=== PATIENT | male | born 1935 | race Caucasian/White ===

== ENCOUNTER 2016-05-01 12:59 | Emergency (ER) | payer MEDICARE, BC ==
[~2016-05-01] VITALS: Ht 185.4 cm; Wt 65.9 kg
[~2016-05-01 12:59] MED LIST: AMOXICILLIN/CLA1 TA1 PO; ASPIRIN 81M81 MG/TA2 PO; CARDIZEM 30MG T30 MG PO; DIGITEK0.125 MG PO; ELIQUIS 5MG PO; METAGLIP 2.5 MG1 TA1 PO; MOBIC15 MG PO; NORCO 325 MG-51 TAB PO; NORVASC 10MG10 MG PO; PRIL40 PO; PRINIVIL40 MG PO; SYNTHROID 0.0.025 MG PO; TOPROL XL100 MG PO; ZOCOR 20MG20 MG PO
[2016-05-01 13:03] VITALS: BP 139/69; PULSE 85; TEMP 97.5
== END 2016-05-01 14:18 | disposition home or self-care (01) ==
LOC: COL.ER 12:59
DX: M25.411 Effusion, right shoulder (principal); E11.9 Type 2 diabetes mellitus without complications; I10 Essential (primary) hypertension; F17.210 Nicotine dependence, cigarettes, uncomplicated

== ENCOUNTER 2016-05-07 14:22 | Inpatient (IN) | payer MEDICARE, BC ==
[2016-05-07] VITALS (56 sets, daily range): BP systolic 110; BP diastolic 57; PULSE 96; TEMP 100.4; O2SAT 86–98
[~2016-05-07] VITALS: Ht 182.9 cm; Wt 72.6 kg
[2016-05-07 15:07] LABS: BASO % 0.6 % (0.0-2.0); GRAN # 1.2 (1.4-6.5); GRAN % 67.7 % (42.2-75.2); LYMPH # 0.5 (1.2-3.4); LYMPH % 26.6 % (20.0-51.0); MEAN CELL VOLUME 87 fl (80.0-100.0); MEAN CORPUSCULAR HGB CONC 32 g/dl (33.0-37.0); MEAN PLATELET VOLUME 10.5 fl (7.4-10.4); MONO # 0.1 (0.1-0.6); MONO % 4.5 % (1.7-9.3); PLATELET COUNT 272 K/mm3 (130-400); RED BLOOD COUNT 3.58 M/mm3 (4.20-5.60); REDCELL DISTRIBUTION WIDTH-CV 15.9 % (11.5-14.5)
[2016-05-07 15:10] LABS: HEMATOCRIT 31.2 % (42.0-52.0); HEMOGLOBIN 10.1 g/dl (13.5-18.0); MEAN CORPUSCULAR HEMOGLOBIN 28 pg (27.0-31.0); WHITE BLOOD COUNT 1.8 K/mm3 (4.8-10.8)
[2016-05-07 15:13] LABS: ADD PATHOLOGY DIFF REVIEW NO
[2016-05-07 15:20] LABS: ADJUSTED CALCIUM 9.3 mg/dL (8.4-10.2); ALBUMIN 2.8 gm/dL (3.5-5.0); BILIRUBIN,TOTAL 0.8 mg/dL (0.0-1.0); CALCIUM 8.3 mg/dL (8.4-10.2); CREATININE, serum 0.61 mg/dL (0.66-1.25); POTASSIUM 3.4 mmol/L (3.4-5.0); TOTAL PROTEIN 6.4 gm/dL (6.4-8.2)
[2016-05-07 15:27] LABS: ARTERIAL BLD GAS TCO2 CT 21.6; ARTERIAL BLOOD GAS HCO3 20.7 meq/L (22-26); ARTERIAL BLOOD GAS PHT 7.47 C (7.35-7.45); ARTERIAL BLOOD GAS PO2 80.1 mmHg (80-100); ARTERIAL BLOOD GAS PO2T 80.1 (80-100); ARTERIAL BLOOD GAS pH 7.47 (7.35-7.45); OXYHEMOGLOBIN 94.1 %
[2016-05-07 15:28] LABS: ALLEN TEST NO; ATS? YES
[2016-05-07 15:49] LABS: BAND 25 % (0-10); METAMYELOCYTE 5 % (0-0); NEUTROPHILS 25 % (42.0-75.2); TOTAL CELLS COUNTED 100
[2016-05-07 15:53] LABS: PLATELET ESTIMATE INCREASED (NORMAL); POLYCHROMASIA 1+
[2016-05-07 15:54] LABS: ANISOCYTOSIS 2+; HYPOCHROMIA 2+; MICROCYTOSIS 2+
[2016-05-07 16:05] LABS: TOXIC GRANULATION PRESENT
[2016-05-07] MEDS ORDERED: OXYCODONE H5 MG/5 ML PO (21:48)
[2016-05-08] VITALS (1395 sets, daily range): BP systolic 92–121; BP diastolic 48–67; PULSE 76–88; TEMP 97–99.7; O2SAT 89–100
[2016-05-08 03:11] LABS: PH 5 (5-8); SQUAMOUS EPITHELIAL 0-2 /hpf; URINE APPEARANCE Clear; URINE BACTERIA None Seen /hpf; URINE BILIRUBIN Negative (NEGATIVE); URINE BLOOD Negative (NEGATIVE); URINE COLOR Amber; URINE GLUCOSE 1+ (NEGATIVE); URINE KETONE Negative (NEGATIVE); URINE RBC 0-2 /hpf; URINE UROBILINOGEN Negative (NEGATIVE); URINE WBC 0-2 /hpf
[2016-05-08 05:36] LABS: MEAN CELL VOLUME 86 fl (80.0-100.0); MEAN CORPUSCULAR HGB CONC 32 g/dl (33.0-37.0); MEAN PLATELET VOLUME 10.5 fl (7.4-10.4); PLATELET COUNT 191 K/mm3 (130-400); RED BLOOD COUNT 2.73 M/mm3 (4.20-5.60); REDCELL DISTRIBUTION WIDTH-CV 16.1 % (11.5-14.5); WHITE BLOOD COUNT 3.9 K/mm3 (4.8-10.8)
[2016-05-08 05:39] LABS: HEMATOCRIT 23.6 % (42.0-52.0); MEAN CORPUSCULAR HEMOGLOBIN 28 pg (27.0-31.0)
[2016-05-08 05:41] LABS: HEMOGLOBIN 7.6 g/dl (13.5-18.0)
[2016-05-08 05:42] LABS: ADD PATHOLOGY DIFF REVIEW NO
[2016-05-08 05:49] LABS: ANISOCYTOSIS 1+; BAND 71 % (0-10); METAMYELOCYTE 4 % (0-0); NEUTROPHILS 4 % (42.0-75.2); TOTAL CELLS COUNTED 100
[2016-05-08 05:50] LABS: ADJUSTED CALCIUM 8.6 mg/dL (8.4-10.2); ALBUMIN 2.1 gm/dL (3.5-5.0); BILIRUBIN,TOTAL 0.7 mg/dL (0.0-1.0); CALCIUM 7.1 mg/dL (8.4-10.2); CREATININE, serum 0.52 mg/dL (0.66-1.25); MAGNESIUM 1.7 mg/dL (1.6-2.3); PLATELET ESTIMATE NORMAL (NORMAL); POTASSIUM 3.1 mmol/L (3.4-5.0)
[2016-05-08 12:39] LABS: PHOSPHOROUS 2.1 mg/dL (2.5-4.5)
[2016-05-08 18:03] LABS: HEMATOCRIT 26.1 % (42.0-52.0); HEMOGLOBIN 8.4 g/dl (13.5-18.0)
[2016-05-08 18:14] LABS: MAGNESIUM 1.8 mg/dL (1.6-2.3); POTASSIUM 3.7 mmol/L (3.4-5.0)
[2016-05-09] VITALS (698 sets, daily range): BP systolic 101–133; BP diastolic 50–75; PULSE 67–104; TEMP 97.4–98.2; O2SAT 85–100
[2016-05-09 05:45] LABS: MEAN CELL VOLUME 90 fl (80.0-100.0); MEAN CORPUSCULAR HGB CONC 31 g/dl (33.0-37.0); MEAN PLATELET VOLUME 10.8 fl (7.4-10.4); PLATELET COUNT 189 K/mm3 (130-400); RED BLOOD COUNT 2.76 M/mm3 (4.20-5.60); REDCELL DISTRIBUTION WIDTH-CV 16.4 % (11.5-14.5); WHITE BLOOD COUNT 7.4 K/mm3 (4.8-10.8)
[2016-05-09 05:49] LABS: HEMATOCRIT 24.8 % (42.0-52.0); HEMOGLOBIN 7.6 g/dl (13.5-18.0); MEAN CORPUSCULAR HEMOGLOBIN 28 pg (27.0-31.0)
[2016-05-09 05:50] LABS: ADD PATHOLOGY DIFF REVIEW NO
[2016-05-09 06:00] LABS: ADJUSTED CALCIUM 7.9 mg/dL (8.4-10.2); ALBUMIN 1.7 gm/dL (3.5-5.0); BILIRUBIN,TOTAL 0.4 mg/dL (0.0-1.0); CALCIUM 6.1 mg/dL (8.4-10.2); CREATININE, serum 0.45 mg/dL (0.66-1.25); POTASSIUM 5.4 mmol/L (3.4-5.0); TOTAL PROTEIN 4.3 gm/dL (6.4-8.2)
[2016-05-09 06:01] LABS: ANISOCYTOSIS 1+; BAND 66 % (0-10); NEUTROPHILS 19 % (42.0-75.2); PLATELET ESTIMATE NORMAL (NORMAL); TOTAL CELLS COUNTED 100
[2016-05-10] VITALS (7 sets, daily range): BP systolic 99–126; BP diastolic 45–65; PULSE 58–86; TEMP 97.2–99.3
[2016-05-10 06:47] LABS: MEAN CELL VOLUME 88 fl (80.0-100.0); MEAN CORPUSCULAR HGB CONC 32 g/dl (33.0-37.0); MEAN PLATELET VOLUME 11.2 fl (7.4-10.4); PLATELET COUNT 245 K/mm3 (130-400); RED BLOOD COUNT 3.32 M/mm3 (4.20-5.60); REDCELL DISTRIBUTION WIDTH-CV 16.5 % (11.5-14.5); WHITE BLOOD COUNT 10.6 K/mm3 (4.8-10.8)
[2016-05-10 06:51] LABS: ADJUSTED CALCIUM 8.7 mg/dL (8.4-10.2); ALBUMIN 1.9 gm/dL (3.5-5.0); BILIRUBIN,TOTAL 0.4 mg/dL (0.0-1.0); CREATININE, serum 0.48 mg/dL (0.66-1.25); TOTAL PROTEIN 4.5 gm/dL (6.4-8.2)
[2016-05-10 06:54] LABS: POTASSIUM 2.6 mmol/L (3.4-5.0)
[2016-05-10 06:57] LABS: ADD PATHOLOGY DIFF REVIEW NO; HEMATOCRIT 29.1 % (42.0-52.0); HEMOGLOBIN 9.2 g/dl (13.5-18.0); MEAN CORPUSCULAR HEMOGLOBIN 28 pg (27.0-31.0)
[2016-05-10 08:14] LABS: BAND 50 % (0-10); EOSINOPHIL 2 % (0-4); METAMYELOCYTE 1 % (0-0); NEUTROPHILS 35 % (42.0-75.2); TOTAL CELLS COUNTED 100
[2016-05-10 08:15] LABS: ANISOCYTOSIS 1+; BURR CELLS 1+; PLATELET ESTIMATE NORMAL (NORMAL); POIKILOCYTOSIS 1+; TOXIC GRANULATION PRESENT
[2016-05-10 08:16] LABS: OVALOCYTES 1+
[2016-05-10 09:10] LABS: POTASSIUM 2.7 mmol/L (3.4-5.0)
[2016-05-10 11:35] LABS: MAGNESIUM 1.8 mg/dL (1.6-2.3); PHOSPHOROUS 1.4 mg/dL (2.5-4.5)
[2016-05-11 03:50] VITALS: BP 123/62; PULSE 78; TEMP 98.1
[2016-05-11 07:40] LABS: MEAN CELL VOLUME 87 fl (80.0-100.0); MEAN CORPUSCULAR HGB CONC 32 g/dl (33.0-37.0); MEAN PLATELET VOLUME 11.1 fl (7.4-10.4); PLATELET COUNT 276 K/mm3 (130-400); REDCELL DISTRIBUTION WIDTH-CV 16.6 % (11.5-14.5); WHITE BLOOD COUNT 12.4 K/mm3 (4.8-10.8)
[2016-05-11 07:50] LABS: ADD PATHOLOGY DIFF REVIEW NO; HEMATOCRIT 29.5 % (42.0-52.0); HEMOGLOBIN 9.4 g/dl (13.5-18.0); MEAN CORPUSCULAR HEMOGLOBIN 28 pg (27.0-31.0)
[2016-05-11 07:58] VITALS: BP 110/55; PULSE 94; TEMP 97
[2016-05-11 08:39] LABS: BAND 19 % (0-10); EOSINOPHIL 2 % (0-4); NEUTROPHILS 62 % (42.0-75.2); TOTAL CELLS COUNTED 100
[2016-05-11 08:45] LABS: OVALOCYTES 1+
[2016-05-11 11:15] VITALS: BP 94/42; PULSE 74; TEMP 97.8
[2016-05-11] MEDS ORDERED: AUGMENTIN 250150 ML PO ×2 (12:18→12:32)
[2016-05-11] MEDS ORDERED: FLAGYL 250250 MG/TAB PO (12:25)
[2016-05-11] MEDS ORDERED: KLOR-CON20 MEQ PO (12:29)
[2016-05-11] MEDS ORDERED: AMARYL1 MG PO (12:30)
== END 2016-05-11 13:35 | disposition home or self-care (01) | DRG 177 ==
LOC: COL.ER 14:22 → ICU 16:12 → MEDICAL 16:12 → IMCU 17:55 → ICU 20:05 → MEDICAL 05-09 14:21
PROVIDERS: Anesthesiology Critical Care Medicine; Family Medicine; Internal Medicine
DX: J69.0 Pneumonitis due to inhalation of food and vomit (principal); D61.810 Antineoplastic chemotherapy induced pancytopenia; E43 Unspecified severe protein-calorie malnutrition; A04.7 Enterocolitis due to Clostridium difficile; C78.01 Secondary malignant neoplasm of right lung; C78.02 Secondary malignant neoplasm of left lung; C79.89 Secondary malignant neoplasm of other specified sites; Z68.1 Body mass index [BMI] 19.9 or less, adult; Z85.21 Personal history of malignant neoplasm of larynx; Z93.0 Tracheostomy status; I48.91 Unspecified atrial fibrillation; I10 Essential (primary) hypertension; E11.9 Type 2 diabetes mellitus without complications; Z87.891 Personal history of nicotine dependence; E86.0 Dehydration; E87.6 Hypokalemia
CPT/HCPCS: 99233-AI; 99239; A4315; J1815; J2185; J2543; J2930; J3370; J3480; J7030; J7050

== ENCOUNTER 2016-06-14 13:00 | Outpatient (RCR) | payer MEDICARE, BC ==
[2016-04-23 11:03] VITALS: BP 134/57; PULSE 72
[2016-04-24 08:15] VITALS: BP 105/49; PULSE 60; TEMP 97.5
[2016-04-24 10:04] LABS: ADD PATHOLOGY DIFF REVIEW NO
[2016-04-24 10:14] LABS: MEAN CELL VOLUME 94 fl (80.0-100.0); MEAN CORPUSCULAR HGB CONC 30 g/dl (33.0-37.0); MEAN PLATELET VOLUME 10.9 fl (7.4-10.4); PLATELET COUNT 424 K/mm3 (130-400); WHITE BLOOD COUNT 11.5 K/mm3 (4.8-10.8)
[2016-04-24 10:16] LABS: HEMATOCRIT 33.8 % (42.0-52.0); HEMOGLOBIN 10.2 g/dl (13.5-18.0); MEAN CORPUSCULAR HEMOGLOBIN 28 pg (27.0-31.0)
[2016-04-24 10:54] LABS: ADJUSTED CALCIUM 10.2 mg/dL (8.4-10.2); ALBUMIN 2.8 gm/dL (3.5-5.0); BILIRUBIN,TOTAL 0.7 mg/dL (0.0-1.0); CALCIUM 9.2 mg/dL (8.4-10.2); CREATININE, serum 0.48 mg/dL (0.66-1.25); MAGNESIUM 1.7 mg/dL (1.6-2.3); POTASSIUM 4.7 mmol/L (3.4-5.0); TOTAL PROTEIN 6.8 gm/dL (6.4-8.2)
[2016-04-24 12:21] LABS: BAND 2 % (0-10); NEUTROPHILS 65 % (42.0-75.2); TOTAL CELLS COUNTED 100; TOXIC GRANULATION PRESENT
[2016-04-24 12:22] LABS: PLATELET ESTIMATE NORMAL (NORMAL)
[2016-04-24 12:24] LABS: ANISOCYTOSIS 1+; POIKILOCYTOSIS 1+
[2016-04-29 15:40] VITALS: BP 106/48; PULSE 66; TEMP 98
[2016-04-29 15:52] LABS: ADD PATHOLOGY DIFF REVIEW NO
[2016-04-29 15:54] LABS: MEAN CELL VOLUME 89 fl (80.0-100.0); MEAN CORPUSCULAR HGB CONC 32 g/dl (33.0-37.0); MEAN PLATELET VOLUME 10.1 fl (7.4-10.4); PLATELET COUNT 327 K/mm3 (130-400); RED BLOOD COUNT 3.39 M/mm3 (4.20-5.60); REDCELL DISTRIBUTION WIDTH-CV 15.9 % (11.5-14.5)
[2016-04-29 15:57] LABS: HEMOGLOBIN 9.6 g/dl (13.5-18.0); MEAN CORPUSCULAR HEMOGLOBIN 28 pg (27.0-31.0)
[2016-04-29 16:23] LABS: BAND 1 % (0-10); NEUTROPHILS 79 % (42.0-75.2); TOTAL CELLS COUNTED 100
[2016-04-29 16:27] LABS: HYPOCHROMIA 2+; MICROCYTOSIS 2+
[2016-05-28 15:43] LABS: ADD PATHOLOGY DIFF REVIEW NO
[2016-05-28 15:47] VITALS: BP 110/61; PULSE 96; TEMP 97.6
[2016-05-28 15:48] LABS: MEAN CELL VOLUME 86 fl (80.0-100.0); MEAN CORPUSCULAR HGB CONC 32 g/dl (33.0-37.0); MEAN PLATELET VOLUME 9.8 fl (7.4-10.4); PLATELET COUNT 282 K/mm3 (130-400); RED BLOOD COUNT 3.71 M/mm3 (4.20-5.60); REDCELL DISTRIBUTION WIDTH-CV 19.9 % (11.5-14.5); WHITE BLOOD COUNT 10.3 K/mm3 (4.8-10.8)
[2016-05-28 15:50] LABS: HEMATOCRIT 31.8 % (42.0-52.0); HEMOGLOBIN 10.3 g/dl (13.5-18.0); MEAN CORPUSCULAR HEMOGLOBIN 28 pg (27.0-31.0)
[2016-05-28 15:59] LABS: ADJUSTED CALCIUM 9.3 mg/dL (8.4-10.2); ALBUMIN 2.7 gm/dL (3.5-5.0); BILIRUBIN,TOTAL 0.6 mg/dL (0.0-1.0); CALCIUM 8.3 mg/dL (8.4-10.2); CREATININE, serum 0.44 mg/dL (0.66-1.25); MAGNESIUM 1.8 mg/dL (1.6-2.3); POTASSIUM 4.8 mmol/L (3.4-5.0); TOTAL PROTEIN 6.9 gm/dL (6.4-8.2)
[2016-05-28 16:39] LABS: BAND 2 % (0-10); EOSINOPHIL 3 % (0-4); NEUTROPHILS 70 % (42.0-75.2); TOTAL CELLS COUNTED 100
[2016-05-28 16:41] LABS: HYPOCHROMIA 1+; POLYCHROMASIA 1+; ROULEAUX 1+
[2016-05-28 16:42] LABS: ANISOCYTOSIS 1+
[~2016-06-14] VITALS: Ht 182.9 cm; Wt 68.2 kg
[~2016-06-14 13:00] MED LIST changes: +AMARYL1 MG PO; +AUGMENTIN 250150 ML PO; +FLAGYL 250250 MG/TAB PO; +KLOR-CON20 MEQ PO; +OXYCODONE H5 MG/5 ML PO
[2016-06-14 13:13] VITALS: BP 115/57; PULSE 63; TEMP 97.4
== END 2016-06-14 15:17 | disposition home or self-care (01) ==
LOC: EUO 13:00
PROVIDERS: Internal Medicine; Internal Medicine Medical Oncology
DX: Z45.2 Encounter for adjustment and management of vascular access device (principal)
CPT/HCPCS: C1751; J1644